=== PATIENT | male | born 1925 | race Caucasian/White ===

== ENCOUNTER 2017-02-10 13:21 | Outpatient (CLI) | payer MEDICARE, OTHER ==
--- NOTE | 2017-02-11 11:15 | XRAY Report ---
BILATERAL KNEES: 02/10/2017 COMPARISON: None. INDICATION: Bilateral knee pain. TECHNIQUE: Three views of each knee. FINDINGS: Right knee: There are [id number] tricompartmental degenerative changes. Normal alignment. No evidence of acute fracture. Left knee: Knee prosthesis is noted. Alignment appears normal. No evidence of acute complication. IMPRESSION: 1. RIGHT KNEE [id number] TRICOMPARTMENTAL DEGENERATIVE CHANGES. 2. LEFT KNEE PROSTHESIS WITH NORMAL ALIGNMENT AND NO EVIDENCE OF ACUTE COMPLICATION. :9 JOB #: [id number] EXT JOB #: [id number] [facility]
== END 2017-02-10 13:22 | disposition home or self-care (01) ==
LOC: DI.S 13:21
PROVIDERS: ATTEND Physician Assistant Medical
DX: M17.11 Unilateral primary osteoarthritis, right knee (principal); Z96.652 Presence of left artificial knee joint

== ENCOUNTER 2017-02-24 19:25 | Observation (INO) | payer MEDICARE, OTHER ==
--- NOTE | 2017-02-24 19:44 | ED Physician Documentation ---
PD HPI FOCAL NEURO - Stated complaint Stated Complaint: DOUBLE VISION - Chief complaint Chief Complaint: Neuro - History obtained from History obtained from: Patient - History of Present Illness Timing - onset: How many hours ago (3) Timing - duration: Minutes (30-45) Timing - details: Abrupt onset, Now resolved Severity of deficit: Moderate Weakness: Other (diplopia mostly looking to the left, and ataxia walking.). No : Face, Arm, Leg Numbness: No: Face, Arm, Leg Associated symptoms: No: Headache, Nausea / vomiting, Seizure, Syncope, Head injury Contributing factors: negative: Anticoagulated, Atrial fibrillation Baseline status: positive: Cane Similar symptoms before: Has not had sx before Recently seen: Not recently seen Review of Systems Constitutional: denies: Fever, Chills Eyes: denies: Loss of vision, Decreased vision Ears: denies: Loss of hearing Nose: denies: Rhinorrhea / runny nose, Congestion Throat: denies: Sore throat Cardiac: denies: Chest pain / pressure, Palpitations Respiratory: denies: Dyspnea, Cough GI: denies: Abdominal Pain, Nausea, Vomiting, Diarrhea Skin: denies: Rash, Lesions Neurologic: denies: Numbness, Near syncope, Confused, Altered mental status, Headache, Head injury PD PAST MEDICAL HISTORY - Past Medical History Cardiovascular: None Respiratory: None Neuro: None - Present Medications Home Medications: Ambulatory Orders Medication Instructions Recorded Confirmed Acetaminophen 325 mg PO DAILY PRN 02/25/17 02/25/17 Cyanocobalamin (Vitamin B-12) 250 mcg PO DAILY 02/25/17 02/25/17 [Vitamin B-12 (500 mcg sublingual)] Multivitamin [Theragran] 1 tab PO Q2D 02/25/17 02/25/17 - Allergies Allergies/Adverse Reactions: Allergies Allergy/AdvReac Type Severity Reaction Status Date / Time No Known Drug Allergies Allergy Verified 02/24/17 19:49 - Living Situation Living Situation: reports: With family Living Arrangement: reports: At home - Social History Does the pt smoke?: No Does the pt drink ETOH?: No Does the pt have substance abuse?: No - Family History Family history: reports: Non contributory PD ED PE NORMAL - Vitals Vital signs reviewed: Yes - General General: Alert and oriented X 3, No acute distress, Well developed/nourished - HEENT HEENT: Ears normal (hearing aid on left), Moist mucous membranes, Pharynx benign - Neck Neck: Supple, no meningeal sign, No adenopathy - Cardiac Cardiac: RRR, No murmur - Respiratory Respiratory: Clear bilaterally - Abdomen Abdomen: Soft, Non tender - Male Male : Deferred - Rectal Rectal: Deferred - Back Back: No CVA TTP, No spinal TTP - Derm Derm: Normal color, Warm and dry - Extremities Extremities: No deformity, No tenderness to palpate, Normal ROM s pain - Neuro Neuro: Alert and oriented X 3, pond supervisor 2-12 intact, No motor deficit, No sensory deficit, Normal speech, Other Eye Opening: Spontaneous Motor: Obeys Commands Verbal: Oriented GCS Score: 15 - Psych Psych: Normal mood, Normal affect NIHSS - Level of Consciousness Level of consciousness: (0) Alert, Keenly responsive LOC Questions: (0) Answers both Q's correct LOC Commands: (0) Performs both correctly - Gaze Best Gaze: (0) Normal - Visual Visual: (0) No loss - Facial Palsy Facial Palsy: (0) Normal, symmetrical movement - Motor Arms (both separate) Motor Arm (right): (0) No drift Motor Arm (left): (0) No drift - Motor Legs (both separate) Motor Leg (right): (0) No drift Motor Leg (left): (0) No drift - Limb Ataxia Limb Ataxia: (0) Absent - Sensory Sensory: (0) Normal - Best Language Best Language: (0) No aphasia - Dysarthria Dysarthria: (0) Normal - Extinction and Inattention (formally neg Extinction and inattention: (0) No abnormality - Total Score/Results Total Score/Result: 0 Results - Vitals Vitals: Vital Signs - 24 hr 02/24/17 02/24/17 19:37 21:07 Temperature 36.4 C L Heart Rate 52 L 49 L Respiratory 18 18 Rate Blood Pressure 163/82 H 156/65 H O2 Saturation 100 99 Oxygen O2 Source Room air - EKG (time done) 19:44 Rate: Rate (enter#) (49) Rhythm: Sinus bradycardia [place]: Normal Intervals: Normal DE Ischemia: Normal ST segments. No: ST elevation c/w ischemia, ST depression, T wave inversion - Labs Labs: Laboratory Tests 02/24/17 02/24/17 02/24/17 20:28 20:28 20:28 WBC 10.3 RBC 4.33 L Hgb 13.6 L Hct 41.3 L MCV 95.4 H MCH 31.3 H MCHC 32.8 RDW 13.3 Plt Count 213 MPV 7.6 Neut # Not Reportable Lymph # Not Reportable [place] # Not Reportable Eos # Not Reportable Baso # Not Reportable Absolute Nucleated RBC Not Reportable Total Counted 100 Band Neuts % (Manual) 0 Abnorm Lymph % (Manual) 0 Nucleated RBC % Not Reportable Neutrophils # (Manual) 4.5 Lymphocytes # (Manual) 5.3 H Monocytes # (Manual) 0.4 Eosinophils # (Manual) 0.1 Basophils # (Manual) 0.0 Differential Comment MANUAL DIFFERENTIAL Manual Slide Review Indicated WBC Morphology 2+ SMUDGE CELLS Platelet Estimate NORMAL (130-450,000) Platelet Morphology NORMAL APPEARANCE RBC Morph Micro Appear NORMAL APPEARANCE ESR 4 Sodium 143 Potassium 4.9 Chloride 106 Carbon Dioxide 28 Anion Gap 9.0 BUN 27 H Creatinine 1.0 Estimated GFR (MDRD) 70 L Glucose 94 Calcium 9.4 Magnesium 2.1 Total Bilirubin 0.4 AST 20 ALT 16 Alkaline Phosphatase 63 Total Protein 7.1 Albumin 4.2 Globulin 2.9 Albumin/Globulin Ratio 1.4 Lipase 36 Slides for Path Review Indicated - Rads (name of study) head CT Radiology: Prelim report reviewed (no acute process), EMP read contemporaneously PD MEDICAL DECISION MAKING - ED course Complexity details: reviewed results, re-evaluated patient, considered differential, d/w patient, d/w sales representative consultant (Hospitalist) Departure - Departure Disposition: ED Place in Observation Clinical Impression: TIA (transient ischemic attack) Qualifiers: 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
[2017-02-24] MEDS ORDERED: ASPIRIN 325 MG TABLET PO STA (20:16)
[2017-02-24 20:35] LABS: BASOPHILS % (AUTO) 0.4 %; EOSINOPHILS % (AUTO) 0.6 %; HCT - HEMATOCRIT 41.3 % (42.0-52.0); HGB - HEMOGLOBIN 13.6 g/dL (14.0-18.0); LYMPHOCYTES % (AUTO) 59.8 %; MEAN CORPUSCULAR HEMOGLOBIN 31.3 pg (27.0-31.0); MEAN CORPUSCULAR HGB CONC 32.8 g/dL (32.0-36.0); MEAN CORPUSCULAR VOLUME 95.4 fL (80.0-94.0); MEAN PLATELET VOLUME 7.6 fL (7.4-11.4); MONOCYTES % (AUTO) 4.8 %; NEUTROPHILS % (AUTO) 34.4 %; RED BLOOD COUNT 4.33 10^6/uL (4.70-6.10); RED CELL DISTRIBUTION WIDTH 13.3 % (12.0-15.0); UNCORRECTED WHITE BLOOD COUNT 10.3 x10^3/uL; WHITE BLOOD COUNT 10.3 x10^3/uL (4.8-10.8)
[2017-02-24 20:36] LABS: BAND NEUTROPHILS % (MANUAL) 0 %
[2017-02-24 20:46] LABS: ALBUMIN/GLOBULIN RATIO 1.4 (1.0-2.2); BILIRUBIN,TOTAL 0.4 mg/dL (0.2-1.0); CALCIUM 9.4 mg/dL (8.5-10.3); MAGNESIUM 2.1 mg/dL (1.7-2.8); POTASSIUM 4.9 mmol/L (3.5-5.0); TOTAL PROTEIN 7.1 g/dL (6.7-8.2)
[2017-02-24 21:02] LABS: EOSINOPHILS % (MANUAL) 1 %; LYMPHOCYTES % (MANUAL) 51 %; NEUTROPHILS % (MANUAL) 44 %; TOTAL CELLS COUNTED 100
[2017-02-24 21:04] LABS: PLATELET ESTIMATE, MANUAL NORMAL (130-450,000) (NORMAL); PLATELET MORPHOLOGY NORMAL APPEARANCE (NORMAL)
[2017-02-24 21:05] LABS: NP AUTO DIFFERENTIAL? YES; NP MAN DIFFERENTIAL? NO; WBC MORPHOLOGY (MULTIPLE) 2+ SMUDGE CELLS (NORMAL)
--- NOTE | 2017-02-24 21:05 | CT Preliminary Report ---
Exam: CT HEAD W/O IMPRESSION: 1. No CT abnormality to correlate with clinical findings. 2. Mild nonfocal white matter disease. Otherwise negative. [facility] SITE ID: [id number]
[2017-02-24 21:06] LABS: SLIDE SENT FOR PATH REVIEW? Indicated
--- NOTE | 2017-02-24 21:07 | CT Report ---
EXAM: CT HEAD EXAM DATE: 02/24/2017 08:51 PM. CLINICAL HISTORY: Diplopia and ataxia for 30 minutes this evening. COMPARISON: None. TECHNIQUE: Multiaxial CT images were obtained from the foramen magnum to the vertex. Reformats: Coron al. IV contrast: None. In accordance with CT protocol optimization, one or more of the following dose reduction techniques w ere utilized for this exam: automated exposure control, adjustment of mA and/or KV based on patient s ize, or use of iterative reconstructive technique. FINDINGS: Parenchyma: No intraparenchymal hemorrhage. No evidence of mass, midline shift, or CT findings of inf arction. Gardiner-white differentiation is distinct. There is mild periventricular, nonfocal white matter hypodensity. Extraaxial Spaces: Normal for age. No subdural or epidural collections identified. Ventricles: Normal in size and position. Sinuses and Orbits: Imaged paranasal sinuses, orbits, and mastoids show no significant abnormality. Bones: No evidence of fracture or calvarial defect. Other: None. IMPRESSION: 1. No CT abnormality to correlate with clinical findings. 2. Mild nonfocal white matter disease. Otherwise negative. [facility] Referring Provider Line: [phone] SITE ID: [id number]
[2017-02-24 21:08] LABS: CBC SPECIMEN NUMBER 792886; PATHOLOGIST REVIEW ORDER PATH SLIDE REVIEW
[2017-02-24] MEDS ORDERED: TEMAZEPAM 15 MG CAPSULE PO PRN (22:00)
[2017-02-24] MEDS ORDERED: PROCHLORPERAZINE 10 MG/2 ML VIAL IVP PRN (22:00)
[2017-02-24] MEDS ORDERED: SODIUM CHLORIDE FLUSH 0.9% 10 ML SYRINGE IVP PRN (22:00)
[2017-02-24] MEDS ORDERED: IBUPROFEN 600 MG TABLET PO PRN (22:00)
--- NOTE | 2017-02-24 22:10 | HISTORY & PHYSICAL EXAMINATION ---
Chief Complaint - Chief Complaint Chief Complaint: Loss of balance and double vision History of Present Illness - Admitted From Admitted From:: Home - History of Present Illness HPI Comment/Other: Mr. Nikhil Su is a very pleasant 89-year-old male with a history of double vision and loss of balance this afternoon when he got up suddenly. Symptoms were self-limiting and self resolving after about an hour. Symptoms have not returned and the patient came to the [facility] emergency department for an evaluation. History - Past Medical History Cardiovascular: reports: Hypertension Other Past Medical History: prostate cancer, The patient lost approximately 10% of his total body weight about 3 years ago and has yet to gain the weight back.He is taking vitamin B12 as an appetite stimulant. - Past Surgical History Ortho: reports: Knee replacement Other past surgical history: Patient underwent brachytherapy for prostate cancer and R inguinal hernia repair - Family & Social History Family History: Mother: , Alzheimer's Disease, Cancer (Unknown type), Father: , Alzheimer's Disease, COPD/Emphysema (Father was exposed to mustard gas in World War I), Sister: , Alzheimer's Disease Living arrangement: At home Living Situation: With family - Substance History Use: Uses substance without health or social issues: Alcohol Abuse: Recurrent use of substance despite neg consequences: NONE Dependence: Experiences withdrawal or developed tolerances: NONE - POLST Patient has POLST: No POLST Status: Full Code Meds/Allgy - Home Medications Home Medications: Ambulatory Orders Medication Instructions Recorded Confirmed No Known Home Medications [No 02/24/17 02/24/17 Known Home Medications] - Allergies Allergies/Adverse Reactions: Allergies Allergy/AdvReac Type Severity Reaction Status Date / Time No Known Drug Allergies Allergy Verified 02/24/17 19:49 Review of Systems - Constitutional Constitutional: denies: Fatigue, Fever, Chills, Malaise - Eyes Eyes: reports: Dipolpia. denies: Pain, Irritation, Spots in vision - Ears, Nose & Throat Ears, Nose & Throat: denies: Ear pain, Tinnitus, Vertigo, Nasal pain, Nasal discharge, Nosebleeds, Hoarseness - Cardiovascular Cariovascular: denies: Irregular heart rate, Palpitations, Chest pain, Edema - Respiratory Respiratory: denies: Cough, Sputum production, Wheezing, Snoring - Gastrointestinal Gastrointestinal: denies: Abdominal pain, Abdominal distention, Constipation, Diarrhea, Change in bowel habits - Genitourinary Genitourinary: denies: Dysuria, Frequency, Urgency, Hematuria - Musculoskeletal Musculoskeletal: denies: Muscle pain, Back pain, Muscle aches - Integumentary Integumentary: denies: Rash, Pruritis, Lesions - Neurological Neurological: reports: Other (Patient had ataxia and diplopia which was transient and self resolving earlier today). denies: General weakness, Focal weakness, Headache, Dizziness - Psychiatric Psychiatric: denies: Depression, Anxiety, Suicidal - Endocrine Endocrine: denies: Polyuria, Polydypsia, Polyphagia - Hematologic/Lymphatic Hematologic/Lymphatic: denies: Anemia, Bruising, Petechiae - All Other Systems All Other Systems: reports: Reviewed and negative Exam - Vital Signs Reviewed Vital Signs: Yes Vital Signs: Vital Signs x48h Temp Pulse Resp BP Pulse Ox 02/24/17 22:06 52 L 20 154/67 H 97 02/24/17 21:07 49 L 18 156/65 H 99 02/24/17 19:37 36.4 C L 52 L 18 163/82 H 100 - Physical Exam General Appearance: positive: No acute distress, Alert. negative: Anxious Eyes Bilateral: positive: Normal inspection, PERRL, EOMI, No lid inflammation ENT: positive: ENT inspection nml, Pharynx nml, No signs of dehydration. negative: Purulent nasal drainage Neck: positive: Nml inspection, Thyroid nml, No JVD, Trachea midline. negative : Thyromegaly Respiratory: positive: Chest non-tender, No respiratory distress, Breath sounds nml. negative: Wheezes, Rales, Rhonchi Cardiovascular: positive: Regular rate & rhythm, No murmur, No gallop. negative : Systolic murmur, Diastolic murmur Peripheral Pulses: positive: 0 Abdomen: positive: Non-tender, No organomegaly, Nml bowel sounds, No distention. negative: Guarding, Rebound Back: positive: Nml inspection. negative: CVA tenderness (R), CVA tenderness (L ) Skin: positive: Color nml, No rash, Warm, Dry. negative: Cyanosis Extremities: positive: Non-tender, Full ROM, Nml appearance, No pedal edema Neurologic/Psychiatric: positive: Oriented x3, CN's nml (2-12), Motor nml, Sensation nml, Mood/affect nml Conclusion/Plan - Problem List (1) TIA (transient ischemic attack) Conclusion/Plan: Will admit the patient to observation and rule out neurologic event with echocardiogram, carotid ultrasound, and MRI of the brain. 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 CLINICAL HISTORY: Diplopia and ataxia for 30 minutes this evening. COMPARISON: None. TECHNIQUE: Multiaxial CT images were obtained from the foramen magnum to the vertex. Reformats: Coronal. IV contrast: None. In accordance with CT protocol optimization, one or more of the following dose reduction techniques were utilized for this exam: automated exposure control, adjustment of mA and/ or KV based on patient size, or use of iterative reconstructive technique. FINDINGS: Parenchyma: No intraparenchymal hemorrhage. No evidence of mass, midline shift, or CT findings of infarction. Gardiner-white differentiation is distinct. There is mild periventricular, nonfocal white matter hypodensity. Extraaxial Spaces: Normal for age. No subdural or epidural collections identified. Ventricles: Normal in size and position. Sinuses and Orbits: Imaged paranasal sinuses, orbits, and mastoids show no significant abnormality. Bones: No evidence of fracture or calvarial defect. Other: None. IMPRESSION: 1. No CT abnormality to correlate with clinical findings. 2. Mild nonfocal white matter disease. Otherwise negative.) Issues/Core Measures - Anticipated LOS Anticipated Stay Length: Less than 2 midnights - [facility] Requirement for [facility] I expect patient to be DC'd or transferred within 96 hours.: Yes - DVT/VTE - Prophylaxis VTE/DVT Device ordered at admit?: Yes
[2017-02-24] MEDS: SODIUM CHLORIDE FLUSH 0.9% 10 ML SYRINGE IVP SCH (22:48)
--- NOTE | 2017-02-25 02:00 | Ultrasound Preliminary Report ---
Exam: US CAROTID DOPPLER COMPLETE IMPRESSION: 1. Mild bilateral carotid bulb and proximal internal carotid artery atheromatous plaque with no hemod ynamically significant stenosis. Validated velocity measurements with angiographic measurements and velocity criteria are extrapolated from diameter data as defined by the Society of Radiologists in Ultrasound Consensus Conference Radi ology 2003; 229;340-346. [facility] SITE ID: [id number]
[2017-02-25] MEDS: SODIUM CHLORIDE FLUSH 0.9% 10 ML SYRINGE IVP SCH ×2 (05:06→13:46)
[2017-02-25] MEDS ORDERED: POLYETHYLENE GLYCOL 3350 17 GM PACKET PO SCH (09:00)
--- NOTE | 2017-02-25 15:58 | DISCHARGE SUMMARY ---
Discharge Summary Admit Date: 02/24/17 Discharge Date: 02/25/17 Discharging Provider: CATY Lindo Primary Care Provider: Mariela King Code Status: Attempt Resuscitation Condition at Discharge: Good Discharge Disposition: 01 Home, Self Care - DIAGNOSES Admission Diagnoses: TIA Temporary vision disturbance. Discharge Diagnoses with Status of Each Condition: TIA- ruled out negative. Resolved. Cor Pulmonale- new diagnosis, stable and no treatment necessary. - HPI History of Present Illness: Nikhil Su is a very pleasant 89-year-old white male with a history of double vision and loss of balance this afternoon when he got up suddenly. Symptoms were self-limiting and self resolving after about an hour. Symptoms have not returned and the patient came to the [facility] emergency department for an evaluation. He will be in observation overnight for an MRI in AM, echocardiogram, carotid dopplers and telemetry monitoring. - HOSPITAL COURSE Hospital Course: Nikhil had an uneventful stay and was monitored over night. He had his daughter who he resides with him at the bedside. Echocardiogram shows a newly discovered cor pulmonale. Patient had no further symptoms and went home per his request before all testing was resulted. He was discharged in stable condition with recommendations to follow up with PCP and to expect a call from me with MRI results. - ALLERGIES Allergies/Adverse Reactions: Allergies Allergy/AdvReac Type Severity Reaction Status Date / Time No Known Drug Allergies Allergy Verified 02/24/17 19:49 - MEDICATIONS Home Medications: Ambulatory Orders Medication Instructions Recorded Confirmed Acetaminophen 325 mg PO DAILY PRN 02/25/17 02/25/17 Cyanocobalamin (Vitamin B-12) 250 mcg PO DAILY 02/25/17 02/25/17 [Vitamin B-12 (500 mcg sublingual)] Multivitamin [Theragran] 1 tab PO Q2D 02/25/17 02/25/17 - PHYSICAL EXAM AT DISCHARGE General Appearance: positive: No acute distress, Alert Eyes Bilateral: positive: Normal inspection, PERRL ENT: positive: ENT inspection nml, Pharynx nml, No signs of dehydration Neck: positive: Nml inspection, Thyroid nml, No JVD, Trachea midline, Stiff neck , Tracheal deviation Respiratory: positive: Chest non-tender, No respiratory distress, Breath sounds nml Cardiovascular: positive: Regular rate & rhythm, No gallop, Systolic murmur Peripheral Pulses: positive: 2+ Abdomen: positive: Non-tender, No organomegaly, Nml bowel sounds, No distention Back: positive: Nml inspection Skin: positive: Color nml, No rash, Warm, Dry, Pallor Extremities: positive: Non-tender, Full ROM, Nml appearance, No pedal edema Neurologic/Psychiatric: positive: Oriented x3, CN's nml (2-12), Motor nml, Sensation nml, Mood/affect nml Reflexes: Bicep (R): 3+, Bicep (L): 3+ - LABS Result Diagrams: 02/24/17 20:28 02/24/17 20:28 - DIAGNOSTIC IMAGING Diagnostic Imaging Results: Final report reviewed Diagnostic Imaging Results Comments: Head CT: FINDINGS: Parenchyma: No intraparenchymal hemorrhage. No evidence of mass, midline shift, or CT findings of infarction. Gardiner-white differentiation is distinct. There is mild periventricular, nonfocal white matter hypodensity. Extraaxial Spaces: Normal for age. No subdural or epidural collections identified. Ventricles: Normal in size and position. Sinuses and Orbits: Imaged paranasal sinuses, orbits, and mastoids show no significant abnormality. Bones: No evidence of fracture or calvarial defect. Other: None. IMPRESSION: 1. No CT abnormality to correlate with clinical findings. 2. Mild nonfocal white matter disease. Otherwise negative. Carotid US: FINDINGS: Gardiner scale evaluation of the carotid arteries demonstrates mild heterogeneous and calcified plaque in the carotid bulbs extending into the internal carotid artery origins. Peak systolic velocities and ICA/CCA ratios are within normal limits. VELOCITIES: Right: CCA Prox: PSV 91.4 cm/sec. CCA Dist: PSV 64.9 cm/sec, EDV 14.1 cm/sec. ICA Prox: PSV 95.2 cm/sec, EDV 16.2 cm/sec, ICA/CCA Ratio: 1.2. ICA Mid: PSV 91.9 cm/sec, EDV 22.7 cm/sec , ICA/CCA Ratio: 1.4. ICA Dist: PSV 99.5 cm/sec, EDV 24.34 cm/sec , ICA/CCA Ratio: 1.5. ECA: PSV 92.5 cm/sec. Vertebral Artery: PSV 73.0 cm/sec. RVA flow direction: Antegrade. Left: CCA Prox: PSV 93.6 cm/sec. CCA Dist: PSV 66.5 cm/sec, EDV 14.1 cm/sec. ICA Prox: PSV 56.25 cm/sec, EDV 15.14 cm/sec , ICA/CCA Ratio: 0.8. ICA Mid: PSV 92.5 cm/sec, EDV 28.7 cm/sec , ICA/CCA Ratio: 1.4. ICA Dist: PSV 14.7 cm/sec, EDV 29.8 cm/sec , ICA/CCA Ratio: 1.5. ECA: PSV 110.3 cm/sec. Vertebral Artery: PSV 75.74 cm/sec. LVA flow direction: Antegrade. Other: None. IMPRESSION: 1. Mild bilateral carotid bulb and proximal internal carotid artery atheromatous plaque with no hemodynamically significant stenosis. MRI brain: FINDINGS: Diffusion weighted sequence shows no evidence for acute infarct. There is no mass, mass effect, midline shift or abnormal extraaxial fluid collection. Size and configuration of the ventricles are normal. Moderate diffuse cerebral volume loss. Scattered nonspecific T2 and FLAIR hyperintense foci in the deep and periventricular white matter. Otherwise signal within the cortex and white matter appear normal. Small 3-4 mm linear T2 hyperintensity in the right lateral cerebellum and right superior cerebellum compatible with chronic infarct. Ill-defined T2 hyperintensity in the central farhat, compatible with chronic microvascular angiopathy. Major intracranial flow voids appear normal. Globes, orbits, optic nerve sheath complex, optic chiasm, pituitary, cavernous sinus and Meckel's cave appear normal. Paranasal sinuses and mastoid air cells appear well aerated. Marrow signal and extracranial soft tissue appear normal. Craniocervical junction and visualized upper cervical cord appear unremarkable. IMPRESSION: 1.No acute infarct, intracranial hemorrhage, midline shift or hydrocephalus. 2. Scattered nonspecific T2 hyperintensities in the periventricular, subcortical and central farhat, most commonly represent chronic microvascular angiopathy. 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 2. Moderate diffuse cerebral volume loss. Echocardiogram 02/25/17: Overall LV systolic function is normal with an EF of 65 -70%. Impaired relaxation consistent with Grade I diastolic dysfunction. Mild RV enlargement. The RV systolic function is normal. Prominent Eustachian valve seen in the RA (normal finding). There is moderate aortic valve sclerosis without stenosis. Contrast injection of agitated saline was negative for an atrial shunt. - FOLLOW UP Follow Up: You were found to have Cor Pulmonale (a fancy name for right sided heart failure ) based on the Echocardiogram, which may have contributed to your episode of visual disturbance. Please see your PCP as a follow up to this hospital stay. Go back to the ED if similar symptoms arise. - TIME SPENT Time Spent in Discharge (Minutes): 60
--- NOTE | 2017-02-25 16:56 | Discharge Plan ---
Discharge Plan Disposition: 01 Home, Self Care Condition: Good Diet: Regular Activity Restrictions: No Restrictions Shower Restrictions: No Driving Restrictions: No Weight Bearing: Full Weight Additional Instructions or Follow Up instructions: You were found to have Cor Pulmonale (a fancy name for right sided heart failure ) based on the Echocardiogram, which may have contributed to your episode of visual disturbance. Please see your PCP as a follow up to this hospital stay. Go back to the ED if similar symptoms arise. No Smoking: If you smoke, Please STOP! Call for help. Follow-up with: Mariela King PA-C [Primary Care Provider] -
--- NOTE | 2017-02-25 17:08 | Ultrasound Report ---
EXAM: CAROTID DOPPLER ULTRASOUND EXAM DATE: 02/25/2017 01:44 AM. CLINICAL HISTORY: Possible TIA. COMPARISON: None. TECHNIQUE: Real-time sonographic vascular imaging was performed by the joint filler through the [employer] arterial system with a linear transducer utilizing color-flow, Doppler flow and spectral analysis. Multiple automotive leasing sales representative static images were saved for review. FINDINGS: Gardiner scale evaluation of the carotid arteries demonstrates mild heterogeneous and calcified plaque in the carotid bulbs extending into the internal carotid artery origins. Peak systolic veloci ties and ICA/CCA ratios are within normal limits. VELOCITIES: Right: CCA Prox: PSV 91.4 cm/sec. CCA Dist: PSV 64.9 cm/sec, EDV 14.1 cm/sec. ICA Prox: PSV 95.2 cm/sec, EDV 16.2 cm/sec, ICA/CCA Ratio: 1.2. ICA Mid: PSV 91.9 cm/sec, EDV 22.7 cm/sec , ICA/CCA Ratio: 1.4. ICA Dist: PSV 99.5 cm/sec, EDV 24.34 cm/sec , ICA/CCA Ratio: 1.5. ECA: PSV 92.5 cm/sec. Vertebral Artery: PSV 73.0 cm/sec. RVA flow direction: Antegrade. Left: CCA Prox: PSV 93.6 cm/sec. CCA Dist: PSV 66.5 cm/sec, EDV 14.1 cm/sec. ICA Prox: PSV 56.25 cm/sec, EDV 15.14 cm/sec , ICA/CCA Ratio: 0.8. ICA Mid: PSV 92.5 cm/sec, EDV 28.7 cm/sec , ICA/CCA Ratio: 1.4. ICA Dist: PSV 14.7 cm/sec, EDV 29.8 cm/sec , ICA/CCA Ratio: 1.5. ECA: PSV 110.3 cm/sec. Vertebral Artery: PSV 75.74 cm/sec. LVA flow direction: Antegrade. Other: None. IMPRESSION: 1. Mild bilateral carotid bulb and proximal internal carotid artery atheromatous plaque with no hemod ynamically significant stenosis. Validated velocity measurements with angiographic measurements and velocity criteria are extrapolated from diameter data as defined by the Society of Radiologists in Ultrasound Consensus Conference Radi ology 2003; 229;340-346. [facility] Referring Provider Line: [phone] SITE ID: [id number]
[2017-02-25 17:45] VITALS: BP 159/56
--- NOTE | 2017-02-25 17:48 | MRI Preliminary Report ---
Exam: MRI BRAIN W/O IMPRESSION: 1.No acute infarct, intracranial hemorrhage, midline shift or hydrocephalus. 2. Scattered nonspecific T2 hyperintensities in the periventricular, subcortical and central farhat, mo st commonly represent chronic microvascular angiopathy. 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 2. Moderate diffuse cerebral volume loss. [facility] SITE ID: [id number]
--- NOTE | 2017-02-25 17:51 | MRI Report ---
EXAM: MRI BRAIN WITHOUT CONTRAST EXAM DATE: 02/25/2017 04:33 PM. CLINICAL HISTORY: History of prostate cancer, episode of double vision with disorientation COMPARISON: CT head without contrast 02/24/2017. TECHNIQUE: Multiplanar, multisequence T1-weighted and fluid-sensitive MR sequences of the brain were performed. Sequences optimized for routine evaluation. Other: None. IV Contrast: None. FINDINGS: Diffusion weighted sequence shows no evidence for acute infarct. There is no mass, mass effect, midl ine shift or abnormal extraaxial fluid collection. Size and configuration of the ventricles are normal. Moderate diffuse cerebral volume loss. Scattered nonspecific T2 and FLAIR hyperintense foci in the deep and periventricular white matter. Ot herwise signal within the cortex and white matter appear normal. Small 3-4 mm linear T2 hyperintensit y in the right lateral cerebellum and right superior cerebellum compatible with chronic infarct. Ill- defined T2 hyperintensity in the central farhat, compatible with chronic microvascular angiopathy. Major intracranial flow voids appear normal. Globes, orbits, optic nerve sheath complex, optic chiasm, pituitary, cavernous sinus and Meckel's cav e appear normal. Paranasal sinuses and mastoid air cells appear well aerated. Marrow signal and extracranial soft tissue appear normal. Craniocervical junction and visualized upper cervical cord appear unremarkable. IMPRESSION: 1.No acute infarct, intracranial hemorrhage, midline shift or hydrocephalus. 2. Scattered nonspecific T2 hyperintensities in the periventricular, subcortical and central farhat, mo st commonly represent chronic microvascular angiopathy. 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 2. Moderate diffuse cerebral volume loss. [facility] Referring Provider Line: [phone] SITE ID: [id number]
[2017-03-02 00:08] LABS: PATH REVIEW COMPLETED PATH REVIEW COMPLETE
== END 2017-02-25 18:07 | disposition home or self-care (01) ==
LOC: ED 19:25 → OBS 22:00
PROVIDERS: ADMIT Hospitalist; ATTEND Internal Medicine
DX: H53.2 Diplopia (principal); R27.0 Ataxia, unspecified; I27.81 Cor pulmonale (chronic); I10 Essential (primary) hypertension; Z85.46 Personal history of malignant neoplasm of prostate
CPT/HCPCS: 36415; 70450; 70551; 80053; 83690; 83735; 85025; 85651; 93005; 93306; 93880; 99284; A9270; G0378

== ENCOUNTER 2017-08-16 10:31 | Outpatient (CLI) | payer MEDICARE, OTHER ==
[2017-08-16 18:10] LABS: BASOPHILS % (AUTO) 0.3 %; EOSINOPHILS # (AUTO) 0.1 10^3/uL (0.0-0.7); EOSINOPHILS % (AUTO) 0.7 %; HGB - HEMOGLOBIN 13.5 g/dL (14.0-18.0); LYMPHOCYTES # (AUTO) 6.6 10^3/uL (1.5-3.5); LYMPHOCYTES % (AUTO) 57.5 %; MEAN CORPUSCULAR HEMOGLOBIN 32.4 pg (27.0-31.0); MEAN CORPUSCULAR VOLUME 98.3 fL (80.0-94.0); MEAN PLATELET VOLUME 8.4 fL (7.4-11.4); MONOCYTES # (AUTO) 0.5 10^3/uL (0.0-1.0); MONOCYTES % (AUTO) 4.5 %; NEUTROPHILS # (AUTO) 4.3 10^3/uL (1.5-6.6); PLT - PLATELET COUNT 209 10^3/uL (130-450); RED BLOOD COUNT 4.16 10^6/uL (4.70-6.10); RED CELL DISTRIBUTION WIDTH 13.2 % (12.0-15.0); WHITE BLOOD COUNT 11.5 x10^3/uL (4.8-10.8)
[2017-08-16 18:30] LABS: ALBUMIN 3.7 g/dL (3.2-5.5); ALBUMIN/GLOBULIN RATIO 1.3 (1.0-2.2); BILIRUBIN,TOTAL 0.8 mg/dL (0.2-1.0); CALCIUM 9.1 mg/dL (8.5-10.3); CREATININE 1.2 mg/dL (0.6-1.2); TOTAL PROTEIN 6.5 g/dL (6.7-8.2)
[2017-08-16 19:32] LABS: RBC MORPHOLOGY (MULTIPLE) NORMAL APPEARANCE (NORMAL)
[2017-08-16 19:33] LABS: DIFFERENTIAL COMMENT MANUAL=AUTO DIFF; PLATELET ESTIMATE, MANUAL NORMAL (130-450,000) (NORMAL); PLATELET MORPHOLOGY NORMAL APPEARANCE (NORMAL)
--- NOTE | 2017-08-17 08:26 | XRAY Report ---
Procedure Date: 08/16/2017 Accession Number: [id number] / [id number] Procedure: XRS - Chest 2 View X-Ray CPT Code: 54643 FULL RESULT: EXAM: Chest 2 View X-Ray DATE: 08/16/2017 4:11 PM CLINICAL HISTORY: WEIGHT LOSS, ABNORMAL COMPARISON: None TECHNIQUE: 2 view chest FINDINGS: The cardiac silhouette is within normal limits. The lungs are hyperinflated, compatible with COPD. No focal consolidation, effusion, or pneumothorax is present. No pulmonary nodule or mass lesion is appreciated. IMPRESSION: Hyperinflation, compatible with COPD.
== END 2017-08-16 10:32 | disposition home or self-care (01) ==
LOC: LAB.F 10:31 → DI.S 10:32
PROVIDERS: ATTEND Internal Medicine
DX: R63.4 Abnormal weight loss (principal)
CPT/HCPCS: 36415; 71046; 80053; 84443; 85025